=== PATIENT | female | born 1940 | race Caucasian/White ===

== ENCOUNTER → 2016-07-21 | Outpatient (REF) | payer OTHER ==
[2016-07-21 11:40] LABS: ALBUMIN 3.9 GM/DL (3.2-5.2); ALBUMIN/GLOBULIN RATIO 1.22 (1.00-1.93); ALKALINE PHOSPHATASE 53 U/L (45-117); ALT/SGPT 16 U/L (12-78); ANION GAP 9 MEQ/L (8-16); AST/SGOT 11 U/L (15-37); BILIRUBIN,TOTAL 0.6 MG/DL (0.2-1.0); BLOOD UREA NITROGEN 13 MG/DL (7-18); CALCIUM LEVEL 8.9 MG/DL (8.8-10.2); CARBON DIOXIDE LEVEL 28 MEQ/L (21-32); CHLORIDE LEVEL 105 MEQ/L (98-107); CHOLESTEROL LEVEL 155 MG/DL (<200); CREATININE FOR GFR 0.83 MG/DL (0.55-1.02); FREE T4 1.18 NG/DL (0.76-1.46); GLOMERULAR FILTRATION RATE > 60.0 (>39); GLUCOSE, FASTING 121 MG/DL (83-110); POTASSIUM SERUM 4.2 MEQ/L (3.5-5.1); SODIUM LEVEL 142 MEQ/L (136-145); TOTAL PROTEIN 7.1 GM/DL (6.4-8.2); TRIGLYCERIDES LEVEL 261 MG/DL (<150)
== END ==
LOC: M SFHCCLAY 08:01
PROVIDERS: ATTEND Family Medicine
DX: E11.9 Type 2 diabetes mellitus without complications (principal); E03.9 Hypothyroidism, unspecified

== ENCOUNTER → 2016-11-18 | Outpatient (CLI) | payer OTHER ==
--- NOTE | 2016-11-19 03:22 | REP ---
Clinical: Cough. Technique: PA and lateral. Ulysses: 04/09/2016. Findings: Mediastinum and cardiac silhouette are within normal limits and stable. Lung winter demonstrate chronic changes. Trace left basilar atelectasis cannot be excluded. No consolidation, effusion, or pneumothorax. Skeletal structures are intact and normal for age. Impression: Cannot exclude trace left basilar atelectasis. Signed by Lewis Servin MD 11/19/2016 03:14 A
== END ==
LOC: M CLY 15:51
PROVIDERS: ATTEND Family Medicine
DX: R05 Cough (principal); I10 Essential (primary) hypertension; E11.9 Type 2 diabetes mellitus without complications; E03.9 Hypothyroidism, unspecified; Z12.31 Encounter for screening mammogram for malignant neoplasm of breast; R30.0 Dysuria

== ENCOUNTER → 2016-12-22 | Outpatient (REF) | payer OTHER | LOC: M SFHCCLAY 12:11 | PROVIDERS: ATTEND Family Medicine | DX: R35.0 Frequency of micturition (principal) | CPT/HCPCS: 81002; 87086; G0463 ==

== ENCOUNTER → 2017-01-02 | Outpatient (REF) | payer OTHER | LOC: M LAB REF 08:28 | PROVIDERS: ATTEND Physician Assistant | DX: R30.0 Dysuria (principal) ==

== ENCOUNTER → 2017-01-19 | Outpatient (REF) | payer OTHER | LOC: M SFHCCLAY 12:30 | PROVIDERS: ATTEND Family Medicine | DX: E11.9 Type 2 diabetes mellitus without complications (principal) | CPT/HCPCS: 83036; G0463 ==

== ENCOUNTER → 2017-02-14 | Outpatient (REF) | payer OTHER | LOC: M LAB REF 13:40 | PROVIDERS: ATTEND Physician Assistant | DX: R39.15 Urgency of urination (principal) ==

== ENCOUNTER → 2017-07-29 | Outpatient (REF) | payer OTHER ==
[2017-07-29 18:55] LABS: FREE T4 1.16 NG/DL (0.76-1.46)
[2017-07-29 19:25] LABS: ESTIMATED AVERAGE GLUCOSE 123 MG/DL (60-110); HEMOGLOBIN A1c 5.9 %
== END ==
LOC: M SFHCCLAY 13:02
DX: J45.30 Mild persistent asthma, uncomplicated (principal); E03.9 Hypothyroidism, unspecified; E11.9 Type 2 diabetes mellitus without complications
CPT/HCPCS: 84443

== ENCOUNTER → 2017-09-06 | Outpatient (REF) | payer OTHER | LOC: M LAB REF 16:28 | DX: R30.0 Dysuria (principal) | CPT/HCPCS: 87086 ==

== ENCOUNTER → 2017-10-11 | Outpatient (REF) | payer OTHER | LOC: M LAB REF 17:53 | DX: R30.0 Dysuria (principal) | CPT/HCPCS: 87086 ==

== ENCOUNTER → 2017-12-31 | Outpatient (CLI) | payer OTHER | LOC: M RAD 09:01 | DX: M51.26 Other intervertebral disc displacement, lumbar region (principal); M48.061 Spinal stenosis, lumbar region without neurogenic claudication; M12.88 Other specific arthropathies, not elsewhere classified, other specified site; M51.27 Other intervertebral disc displacement, lumbosacral region; M51.06 Intervertebral disc disorders with myelopathy, lumbar region; M71.38 Other bursal cyst, other site; M53.3 Sacrococcygeal disorders, not elsewhere classified ==

== ENCOUNTER → 2017-12-31 | Outpatient (CLI) | payer OTHER | LOC: M RAD 09:06 | DX: M79.671 Pain in right foot (principal); Z87.821 Personal history of retained foreign body fully removed; M51.26 Other intervertebral disc displacement, lumbar region; M48.061 Spinal stenosis, lumbar region without neurogenic claudication; M12.88 Other specific arthropathies, not elsewhere classified, other specified site; M51.27 Other intervertebral disc displacement, lumbosacral region; M51.06 Intervertebral disc disorders with myelopathy, lumbar region; M71.38 Other bursal cyst, other site; M53.3 Sacrococcygeal disorders, not elsewhere classified | CPT/HCPCS: 72148 ==

== ENCOUNTER → 2018-02-21 | Outpatient (REF) | payer OTHER ==
[2018-02-21 20:14] LABS: ANION GAP 8 MEQ/L (8-16); BLOOD UREA NITROGEN 14 MG/DL (7-18); CALCIUM LEVEL 9.3 MG/DL (8.8-10.2); CARBON DIOXIDE LEVEL 29 MEQ/L (21-32); CHLORIDE LEVEL 105 MEQ/L (98-107); CREATININE FOR GFR 0.82 MG/DL (0.55-1.30); GLOMERULAR FILTRATION RATE > 60.0 (>39); LDL CHOLESTEROL 49 MG/DL (<100); POTASSIUM SERUM 4.5 MEQ/L (3.5-5.1); SODIUM LEVEL 142 MEQ/L (136-145); TRIGLYCERIDES LEVEL 274 MG/DL (<150)
[2018-02-22 01:20] LABS: ESTIMATED AVERAGE GLUCOSE 117 MG/DL (60-110); HEMOGLOBIN A1c 5.7 %
[2018-02-22 04:17] LABS: CHOLESTEROL LEVEL 149 MG/DL (<200)
[2018-02-22 04:18] LABS: CHOLESTEROL RISK RATIO 3.311 (<5); HDL CHOLESTEROL 45 MG/DL (>40); NON-HDL-C 104 MG/DL
[2018-02-22 04:25] LABS: GLUCOSE, FASTING 111 MG/DL (70-100)
== END ==
LOC: M SFHCCLAY 09:28
DX: E11.9 Type 2 diabetes mellitus without complications (principal)
CPT/HCPCS: 83036

== ENCOUNTER → 2018-07-27 | Outpatient (REF) | payer MEDICARE ==
[2018-07-27 17:09] LABS: ALBUMIN 3.7 GM/DL (3.2-5.2); ALT/SGPT 15 U/L (12-78); BILIRUBIN,TOTAL 0.4 MG/DL (0.2-1.0); BLOOD UREA NITROGEN 8 MG/DL (7-18); CARBON DIOXIDE LEVEL 30 MEQ/L (21-32); CHLORIDE LEVEL 104 MEQ/L (98-107); CHOLESTEROL LEVEL 122 MG/DL (<200); CHOLESTEROL RISK RATIO 3.388 (<5); CREATININE FOR GFR 0.82 MG/DL (0.55-1.30); FREE T4 1.46 NG/DL (0.76-1.46); GLOMERULAR FILTRATION RATE > 60.0 (>39); GLUCOSE, FASTING 136 MG/DL (70-100); HDL CHOLESTEROL 36 MG/DL (>40); LDL CHOLESTEROL 41 MG/DL (<100); NON-HDL-C 86 MG/DL; POTASSIUM SERUM 4.4 MEQ/L (3.5-5.1); SODIUM LEVEL 140 MEQ/L (136-145); THYROID STIMULATING HORMONE 0.965 uIU/ML (0.358-3.740); TOTAL PROTEIN 7.1 GM/DL (6.4-8.2); TRIGLYCERIDES LEVEL 223 MG/DL (<150)
[2018-07-27 17:48] LABS: MALB URINE SIEMENS 30.7 MG/L; MAU/CREAT RATIO 47.9 MCG/MG (0.0-30.0)
== END ==
LOC: M SFHCCLAY 10:45
PROVIDERS: ATTEND Family Medicine
DX: E11.9 Type 2 diabetes mellitus without complications (principal); E03.9 Hypothyroidism, unspecified; J45.30 Mild persistent asthma, uncomplicated; G25.0 Essential tremor; R30.0 Dysuria; I10 Essential (primary) hypertension
CPT/HCPCS: 80053; 80061; 81002; 82043; 83036; 84439; 84443; 87088; 87186; G0463

== ENCOUNTER → 2018-08-20 | Outpatient (REF) | payer MEDICARE | LOC: M LAB REF 11:33 | PROVIDERS: ATTEND Physician Assistant | DX: R30.0 Dysuria (principal) ==

== ENCOUNTER → 2018-12-02 | Outpatient (REF) | payer MEDICARE ==
[2018-12-02 16:32] LABS: HEMATOCRIT 37.7 % (36.0-47.0); HEMOGLOBIN 12.4 g/dl (12.0-15.5); MEAN CORPUSCULAR HEMOGLOBIN 32.4 pg (27.0-33.0); MEAN CORPUSCULAR HGB CONC 32.9 g/dl (32.0-36.5); MEAN CORPUSCULAR VOLUME 98.4 fl (80.0-96.0); PLATELET COUNT, AUTOMATED 239 10^3/uL (150-450); RED BLOOD COUNT 3.83 10^6/uL (4.00-5.40); WHITE BLOOD COUNT 7.6 10^3/uL (4.0-10.0)
[2018-12-02 16:54] LABS: BLOOD UREA NITROGEN 13 MG/DL (7-18); CALCIUM LEVEL 9.3 MG/DL (8.8-10.2); CARBON DIOXIDE LEVEL 26 MEQ/L (21-32); CHLORIDE LEVEL 108 MEQ/L (98-107); FREE T4 1.53 NG/DL (0.76-1.46); GLOMERULAR FILTRATION RATE > 60.0 (>39); GLUCOSE, FASTING 113 MG/DL (70-100); POTASSIUM SERUM 4.5 MEQ/L (3.5-5.1); SODIUM LEVEL 142 MEQ/L (136-145); THYROID STIMULATING HORMONE 0.287 uIU/ML (0.358-3.740)
[2018-12-02 17:01] LABS: HEMOGLOBIN A1c 6.2 %
== END ==
LOC: M SFHCCLAY 11:44
PROVIDERS: ATTEND Family Medicine
DX: E11.9 Type 2 diabetes mellitus without complications (principal); E03.9 Hypothyroidism, unspecified; J32.4 Chronic pansinusitis

== ENCOUNTER → 2019-01-09 | Outpatient (REF) | payer MEDICARE ==
[2019-01-09 17:17] LABS: FREE T4 1.23 NG/DL (0.76-1.46); THYROID STIMULATING HORMONE 1.01 uIU/ML (0.358-3.740)
== END ==
LOC: M SFHCCLAY 10:58
PROVIDERS: ATTEND Family Medicine
DX: E03.9 Hypothyroidism, unspecified (principal)

== ENCOUNTER → 2019-02-23 | Outpatient (REF) | payer MEDICARE | LOC: M LAB REF 16:42 | PROVIDERS: ATTEND Physician Assistant | DX: N39.0 Urinary tract infection, site not specified (principal) ==

== ENCOUNTER → 2019-06-02 | Outpatient (REF) | payer MEDICARE ==
[2019-06-02 16:25] LABS: HEMATOCRIT 39.4 % (36.0-47.0); MEAN CORPUSCULAR HEMOGLOBIN 32.3 pg (27.0-33.0); MEAN CORPUSCULAR VOLUME 97.8 fl (80.0-96.0); PLATELET COUNT, AUTOMATED 263 10^3/uL (150-450); RED BLOOD COUNT 4.03 10^6/uL (4.00-5.40); WHITE BLOOD COUNT 7.1 10^3/uL (4.0-10.0)
[2019-06-02 16:41] LABS: ALBUMIN 3.8 GM/DL (3.2-5.2); ALT/SGPT 15 U/L (12-78); BILIRUBIN,TOTAL 0.7 MG/DL (0.2-1.0); BLOOD UREA NITROGEN 14 MG/DL (7-18); CALCIUM LEVEL 9.3 MG/DL (8.8-10.2); CARBON DIOXIDE LEVEL 28 MEQ/L (21-32); CHLORIDE LEVEL 105 MEQ/L (98-107); CREATININE FOR GFR 1.04 MG/DL (0.55-1.30); FREE T4 1.23 NG/DL (0.76-1.46); GLOMERULAR FILTRATION RATE 54.8 (>39); GLUCOSE, FASTING 99 MG/DL (70-100); MAGNESIUM LEVEL 1.9 MG/DL (1.8-2.4); POTASSIUM SERUM 4.8 MEQ/L (3.5-5.1); SODIUM LEVEL 141 MEQ/L (136-145); TOTAL PROTEIN 7.5 GM/DL (6.4-8.2)
[2019-06-02 16:47] LABS: ERYTHROCYTE SEDIMENTATION RATE 34 mm/hr (0-30)
[2019-06-06 11:49] LABS: ALBUMIN 4.29 GM/DL (3.29-5.55); ALBUMIN % 57.2 % (55.8-66.1); ALPHA-1-GLOBULIN % 4.8 % (2.9-4.9); ALPHA-1-GLOBULINS 0.36 GM/DL (0.17-0.41); ALPHA-2-GLOBULINS 0.85 GM/DL (0.42-0.99); ALPHA-2-GLOBULINS % 11.3 % (7.1-11.8); BETA-1-GLOBULINS 0.53 GM/DL (0.28-0.60); BETA-2-GLOBULINS 0.45 GM/DL (0.19-0.55); GAMMA GLOBULIN % 13.7 % (11.1-18.8); GAMMA GLOBULINS 1.03 GM/DL (0.65-1.58)
== END ==
LOC: M SFHCCLAY 12:19
PROVIDERS: ATTEND Family Medicine
DX: E03.9 Hypothyroidism, unspecified (principal); I10 Essential (primary) hypertension; M79.10 Myalgia, unspecified site; N30.00 Acute cystitis without hematuria; E11.9 Type 2 diabetes mellitus without complications
CPT/HCPCS: 80053; 81002; 83036; 83735; 84165; 84439; 84443; 85027; 85652; 87086; 87220; G0463

== ENCOUNTER → 2019-07-05 | Outpatient (REF) | payer MEDICARE ==
[2019-07-05 16:52] LABS: APPEARANCE, URINE HAZY (CLEAR); BACTERIA, URINE AUTO 1+ (NEGATIVE); BILIRUBIN, URINE AUTO NEGATIVE (NEGATIVE); BLOOD, URINE BLOOD 1+ (NEGATIVE); COLOR, URINE YELLOW (YELLOW); GLUCOSE, URINE (UA) AUTO NEGATIVE (NEGATIVE); KETONE, URINE AUTO NEGATIVE (NEGATIVE); LEUKOCYTE ESTERASE, URINE AUTO 3+ (NEGATIVE); MUCUS, URINE SMALL (NEGATIVE); NITRITE, URINE AUTO NEGATIVE (NEGATIVE); PROTEIN, URINE AUTO NEGATIVE (NEGATIVE); RBC, URINE AUTO 1 /HPF (0-3); SPECIFIC GRAVITY URINE AUTO 1.006 (1.002-1.035); SQUAMOUS EPITHELIAL CELL UR AU 0 /HPF (0-6); UROBILINOGEN, URINE AUTO 0.2 mg/dL (0.0-2.0); WBC, URINE AUTO 110 /HPF (0-3)
== END ==
LOC: M SFHCCLAY 16:09
PROVIDERS: ATTEND Family Medicine
DX: N39.0 Urinary tract infection, site not specified (principal)

== ENCOUNTER → 2019-07-26 | Outpatient (CLI) | payer MEDICARE ==
--- NOTE | 2019-07-26 13:36 | REP ---
Clinical: Frequent urinary tract infection. Technique: Real time suggs scale and color evaluation using curved array transducer. Findings: The bladder is normal in appearance without wall thickening or mass lesion. Bilateral ureteral jets are identified. Prevoid bladder measures 345 ml and the postvoid bladder was completely emptied. Impression: Normal bladder ultrasound. Electronically Signed by Lewis Servin MD 07/26/2019 01:27 P
--- NOTE | 2019-07-26 13:38 | REP ---
Clinical: Frequent urinary tract infection. Technique: Real time suggs scale ultrasound examination using curved array transducer. Findings: Bilateral kidneys are normal in reniform shape and echogenicity without hydronephrosis, nephrolithiasis, or mass lesion. The right kidney measures 11.5 x 6.0 x 5.6 cm and includes a 5.0 x 3.5 x 4.1 cm upper pole simple cyst. Left kidney measures 12.1 x 5.3 x 5.4 cm without cyst. Incidental cholelithiasis. Impression: 5.0 cm incidental simple right renal cyst. Otherwise normal examination without hydronephrosis or nephrolithiasis. Cholelithiasis. Electronically Signed by Lewis Servin MD 07/26/2019 01:29 P
== END ==
LOC: M RAD 12:06
PROVIDERS: ATTEND Nurse Practitioner Family
DX: N39.0 Urinary tract infection, site not specified (principal)

== ENCOUNTER → 2019-10-04 | Outpatient (REF) | payer MEDICARE ==
[2019-10-04 12:48] LABS: CREATININE, URINE 29.1 MG/DL; MALB URINE SIEMENS 21.1 MG/L; MAU/CREAT RATIO 72.5 MCG/MG (0.0-30.0)
== END ==
LOC: M SFHCCLAY 08:32
PROVIDERS: ATTEND Family Medicine
DX: E11.9 Type 2 diabetes mellitus without complications (principal); E03.9 Hypothyroidism, unspecified; I10 Essential (primary) hypertension

== ENCOUNTER → 2019-10-06 | Outpatient (REF) | payer MEDICARE ==
[2019-10-06 12:23] LABS: ALBUMIN 3.7 GM/DL (3.2-5.2); ALT/SGPT 16 U/L (12-78); BILIRUBIN,TOTAL 0.4 MG/DL (0.2-1.0); BLOOD UREA NITROGEN 11 MG/DL (7-18); CALCIUM LEVEL 9.2 MG/DL (8.8-10.2); CARBON DIOXIDE LEVEL 31 MEQ/L (21-32); CHLORIDE LEVEL 103 MEQ/L (98-107); CHOLESTEROL LEVEL 154 MG/DL (<200); CHOLESTEROL RISK RATIO 3.347 (<5); CREATININE FOR GFR 0.83 MG/DL (0.55-1.30); FREE T4 1.13 NG/DL (0.76-1.46); GLOMERULAR FILTRATION RATE > 60.0 (>39); GLUCOSE, FASTING 105 MG/DL (70-100); HDL CHOLESTEROL 46 MG/DL (>40); LDL CHOLESTEROL 64 MG/DL (<100); NON-HDL-C 108 MG/DL; POTASSIUM SERUM 4.6 MEQ/L (3.5-5.1); SODIUM LEVEL 138 MEQ/L (136-145); TOTAL PROTEIN 7.3 GM/DL (6.4-8.2); TRIGLYCERIDES LEVEL 219 MG/DL (<150)
[2019-10-06 12:30] LABS: HEMOGLOBIN A1c 5.8 %
== END ==
LOC: M LABDRAWC 11:27
PROVIDERS: ATTEND Family Medicine
DX: E11.9 Type 2 diabetes mellitus without complications (principal); E03.9 Hypothyroidism, unspecified; I10 Essential (primary) hypertension

== ENCOUNTER → 2019-10-11 | Outpatient (REF) | payer MEDICARE | LOC: M LABSMT 09:51 | PROVIDERS: ATTEND Nurse Practitioner Family | DX: N39.0 Urinary tract infection, site not specified (principal) ==

== ENCOUNTER → 2019-12-07 | Outpatient (REF) | payer MEDICARE | LOC: M LAB REF 14:05 | PROVIDERS: ATTEND Physician Assistant | DX: N39.0 Urinary tract infection, site not specified (principal) ==

== ENCOUNTER → 2019-12-19 | Outpatient (REF) | payer MEDICARE | LOC: M SFHCCLAY 15:24 | PROVIDERS: ATTEND Family Medicine | DX: N30.00 Acute cystitis without hematuria (principal) | CPT/HCPCS: 81002; 87086; G0463 ==

== ENCOUNTER → 2020-01-11 | Outpatient (REF) | payer MEDICARE ==
[2020-02-17 11:47] LABS: BLOOD UREA NITROGEN 16 MG/DL (7-18); CALCIUM LEVEL 9.3 MG/DL (8.8-10.2); CARBON DIOXIDE LEVEL 29 MEQ/L (21-32); CHLORIDE LEVEL 106 MEQ/L (98-107); CREATININE FOR GFR 0.93 MG/DL (0.55-1.30); GLOMERULAR FILTRATION RATE > 60.0 (>39); GLUCOSE, FASTING 98 MG/DL (70-100); HEMOGLOBIN A1c 5.8 %; POTASSIUM SERUM 5.3 MEQ/L (3.5-5.1); SODIUM LEVEL 140 MEQ/L (136-145)
== END ==
LOC: M SFHCCLAY 19:04
PROVIDERS: ATTEND Family Medicine
DX: E11.9 Type 2 diabetes mellitus without complications (principal); I10 Essential (primary) hypertension
CPT/HCPCS: 36415; 80048; 83036; G0463

== ENCOUNTER → 2020-01-17 | Outpatient (REF) | payer MEDICARE | LOC: M SFHCCLAY 12:59 | PROVIDERS: ATTEND Family Medicine | DX: E87.5 Hyperkalemia (principal); I10 Essential (primary) hypertension; E11.9 Type 2 diabetes mellitus without complications ==

== ENCOUNTER → 2020-01-26 | Outpatient (REF) | payer MEDICARE | LOC: M WUC 15:35 | PROVIDERS: ATTEND Nurse Practitioner Family | DX: R30.0 Dysuria (principal) ==

== ENCOUNTER → 2020-02-06 | Outpatient (REF) | payer MEDICARE | LOC: M WUC 13:36 | PROVIDERS: ATTEND Nurse Practitioner Family | DX: B37.3 Candidiasis of vulva and vagina (principal) ==

== ENCOUNTER → 2020-03-04 | Outpatient (REF) | payer MEDICARE | LOC: M LAB REF 16:10 | PROVIDERS: ATTEND Physician Assistant | DX: N39.0 Urinary tract infection, site not specified (principal) ==

== ENCOUNTER → 2020-03-19 | Outpatient (REF) | payer MEDICARE ==
[2020-03-19 14:44] LABS: APPEARANCE, URINE CLEAR (CLEAR); BACTERIA, URINE AUTO 1+ (NEGATIVE); BILIRUBIN, URINE AUTO NEGATIVE (NEGATIVE); BLOOD, URINE BLOOD NEGATIVE (NEGATIVE); COLOR, URINE STRAW (YELLOW); GLUCOSE, URINE (UA) AUTO NEGATIVE (NEGATIVE); KETONE, URINE AUTO NEGATIVE (NEGATIVE); LEUKOCYTE ESTERASE, URINE AUTO TRACE (NEGATIVE); NITRITE, URINE AUTO NEGATIVE (NEGATIVE); PROTEIN, URINE AUTO NEGATIVE (NEGATIVE); RBC, URINE AUTO 0 /HPF (0-3); SPECIFIC GRAVITY URINE AUTO 1.003 (1.002-1.035); SQUAMOUS EPITHELIAL CELL UR AU 0 /HPF (0-6); UROBILINOGEN, URINE AUTO 0.2 mg/dL (0.0-2.0); WBC, URINE AUTO 0 /HPF (0-3)
== END ==
LOC: M SMT 12:44
PROVIDERS: ATTEND Nurse Practitioner Family
DX: N39.0 Urinary tract infection, site not specified (principal)
CPT/HCPCS: 81001; 87086; G0463

== ENCOUNTER → 2020-04-19 | Outpatient (REF) | payer MEDICARE | LOC: M WUC 15:51 | PROVIDERS: ATTEND Physician Assistant | DX: R30.0 Dysuria (principal) ==

== ENCOUNTER → 2020-04-22 | Outpatient (REF) | payer MEDICARE ==
[2020-04-22 18:44] LABS: APPEARANCE, URINE CLEAR (CLEAR); BACTERIA, URINE AUTO NEGATIVE (NEGATIVE); BILIRUBIN, URINE AUTO NEGATIVE (NEGATIVE); BLOOD, URINE BLOOD NEGATIVE (NEGATIVE); COLOR, URINE YELLOW (YELLOW); GLUCOSE, URINE (UA) AUTO NEGATIVE (NEGATIVE); KETONE, URINE AUTO NEGATIVE (NEGATIVE); LEUKOCYTE ESTERASE, URINE AUTO TRACE (NEGATIVE); NITRITE, URINE AUTO NEGATIVE (NEGATIVE); PROTEIN, URINE AUTO NEGATIVE (NEGATIVE); RBC, URINE AUTO 0 /HPF (0-3); SPECIFIC GRAVITY URINE AUTO 1.005 (1.002-1.035); SQUAMOUS EPITHELIAL CELL UR AU 1 /HPF (0-6); UROBILINOGEN, URINE AUTO 0.2 mg/dL (0.0-2.0); WBC, URINE AUTO 0 /HPF (0-3)
== END ==
LOC: M SMT 16:56
PROVIDERS: ATTEND Nurse Practitioner Family
DX: R30.0 Dysuria (principal)

== ENCOUNTER → 2020-06-10 | Outpatient (REF) | payer MEDICARE ==
[2020-06-10 16:33] LABS: BASO # 0.1 10^3/uL (0.0-0.2); BASO % 0.7 % (0.0-1.0); EOS # 0.3 10^3/uL (0.0-0.5); EOS % 3.9 % (0.0-3.0); HEMATOCRIT 39.2 % (36.0-47.0); HEMOGLOBIN 12.6 g/dl (12.0-15.5); LYMPH # 1.5 10^3/uL (1.5-5.0); LYMPH % 17.8 % (24.0-44.0); MEAN CORPUSCULAR HEMOGLOBIN 32.1 pg (27.0-33.0); MEAN CORPUSCULAR HGB CONC 32.1 g/dl (32.0-36.5); MEAN CORPUSCULAR VOLUME 99.7 fl (80.0-96.0); MONO # 0.7 10^3/uL (0.0-0.8); MONO % 8.1 % (0.0-5.0); NEUTROPHILS # 5.9 10^3/uL (1.5-8.5); NEUTROPHILS % 69.1 % (36.0-66.0); PLATELET COUNT, AUTOMATED 214 10^3/uL (150-450); RED BLOOD COUNT 3.93 10^6/uL (4.00-5.40); WHITE BLOOD COUNT 8.6 10^3/uL (4.0-10.0)
[2020-06-10 17:16] LABS: ERYTHROCYTE SEDIMENTATION RATE 38 mm/hr (0-30)
[2020-06-12 15:08] LABS: ANTINUCLEAR ANTIBODIES DIRECT Negative (Negative)
== END ==
LOC: M LABDRAWC 15:43
PROVIDERS: ATTEND Physician Assistant Medical
DX: R51.9 Headache, unspecified (principal); H54.7 Unspecified visual loss

== ENCOUNTER → 2020-08-16 | Outpatient (REF) | payer MEDICARE ==
[2020-08-16 16:44] LABS: HEMOGLOBIN A1c 6.1 %
[2020-08-16 17:00] LABS: ALBUMIN 3.4 GM/DL (3.2-5.2); ALT/SGPT 14 U/L (12-78); BILIRUBIN,TOTAL 0.4 MG/DL (0.2-1.0); BLOOD UREA NITROGEN 16 MG/DL (7-18); CALCIUM LEVEL 8.8 MG/DL (8.8-10.2); CARBON DIOXIDE LEVEL 28 MEQ/L (21-32); CHLORIDE LEVEL 103 MEQ/L (98-107); CREATININE FOR GFR 0.89 MG/DL (0.55-1.30); FREE T4 1.08 NG/DL (0.76-1.46); GLOMERULAR FILTRATION RATE > 60.0 (>39); GLUCOSE, FASTING 94 MG/DL (70-100); POTASSIUM SERUM 4.4 MEQ/L (3.5-5.1); SODIUM LEVEL 136 MEQ/L (136-145); TOTAL PROTEIN 6.9 GM/DL (6.4-8.2)
== END ==
LOC: M SFHCCLAY 13:34
PROVIDERS: ATTEND Family Medicine
DX: R30.0 Dysuria (principal); E11.9 Type 2 diabetes mellitus without complications; I10 Essential (primary) hypertension; E03.9 Hypothyroidism, unspecified
CPT/HCPCS: 80053; 81002; 83036; 84439; 84443; 87088; 87186; G0463

== ENCOUNTER → 2020-10-07 | Outpatient (REF) | payer MEDICARE | LOC: M LAB REF 19:38 | PROVIDERS: ATTEND Physician Assistant | DX: N39.0 Urinary tract infection, site not specified (principal) ==

== ENCOUNTER → 2020-11-06 | Outpatient (REF) | payer MEDICARE | LOC: M WUC 19:52 | PROVIDERS: ATTEND Physician Assistant | DX: N39.0 Urinary tract infection, site not specified (principal) ==

== ENCOUNTER → 2020-12-02 | Outpatient (REF) | payer MEDICARE | LOC: M SFHCCLAY 13:39 | PROVIDERS: ATTEND Physician Assistant | DX: R30.0 Dysuria (principal) | CPT/HCPCS: 81002; 87088; 87186; G0463 ==

== ENCOUNTER → 2020-12-04 | Outpatient (CLI) | payer MEDICARE ==
--- NOTE | 2020-12-04 15:55 | REP ---
INDICATION: SOB; COUGH. COMPARISON: 11/18/2016 TECHNIQUE: PA and lateral FINDINGS: There is cardiomegaly status quo. Lung winter are unchanged. 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 No new abnormal parenchymal opacities or pleural effusions have developed. Lung winter are otherwise clear. The osseous structures stable. IMPRESSION: Cardiomegaly without evidence of acute cardiopulmonary disease. <Electronically signed by Matty Addison > 12/04/20 [id number]
== END ==
LOC: M CLY 15:40
PROVIDERS: ATTEND Family Medicine
DX: I51.7 Cardiomegaly (principal); R06.02 Shortness of breath; R05 Cough
CPT/HCPCS: 71046; G0463

== ENCOUNTER → 2020-12-17 | Outpatient (REF) | payer MEDICARE | LOC: M WUC 16:12 | PROVIDERS: ATTEND Physician Assistant | DX: R30.0 Dysuria (principal) ==

== ENCOUNTER → 2021-01-17 | Outpatient (CLI) | payer MEDICARE ==
--- NOTE | 2021-01-17 12:43 | REP ---
INDICATION: RECURRENT UTI'S. COMPARISON: Bladder ultrasound: 07/26/2019. TECHNIQUE: Multiple ultrasound images were obtained through the urinary bladder. FINDINGS: The prevoid bladder measures 9.1 x 8.2 x 5.0 cm had a volume of 244 cc. There is no postvoid bladder residual. The bladder wall thickness is normal. The ureteral jets are not demonstrated. IMPRESSION: The bladder appears normal and empties adequately. <Electronically signed by Manas Kumar > 01/17/21 [id number]
--- NOTE | 2021-01-17 12:52 | REP ---
INDICATION: RECURRENT UTI'S. COMPARISON: Renal ultrasound 07/26/2019. TECHNIQUE: Multiplanar 2D ultrasound images were obtained through both kidneys. FINDINGS: The right kidney measures 9.5 x 5.2 x 4.7 cm. There is an interpolar cortical cyst measuring 6.5 x 5.6 x 4.3 cm. The renal parenchymal echogenicity is normal. There is no evidence of hydronephrosis. The left kidney measures 10.2 x 5.4 x 4.2 cm. The renal parenchymal echogenicity is normal. There is no evidence of hydronephrosis. IMPRESSION: 1. Benign cyst, right kidney. 2. The left kidney is normal. <Electronically signed by Manas Kumar > 01/17/21 [id number]
== END ==
LOC: M RAD 11:34
PROVIDERS: ATTEND Nurse Practitioner Family
DX: Z87.440 Personal history of urinary (tract) infections (principal)

== ENCOUNTER → 2021-01-27 | Outpatient (REF) | payer MEDICARE ==
[2021-01-29 18:09] LABS: ANTINUCLEAR ANTIBODIES DIRECT Negative (Negative); Lyme Disease IgG/IgM Antibodie <0.91 ISR (0.00-0.90); Lyme Disease IgM Ab Quantitati <0.80 index (0.00-0.79)
== END ==
LOC: M LABDRAWC 15:36
PROVIDERS: ATTEND Physician Assistant Medical
DX: R51.9 Headache, unspecified (principal); M25.50 Pain in unspecified joint

== ENCOUNTER → 2021-02-11 | Outpatient (CLI) | payer MEDICARE ==
--- NOTE | 2021-02-11 15:53 | REP ---
INDICATION: RO5 COUGH COMPARISON: 12/04/2020. TECHNIQUE: PA/Lateral FINDINGS: Lungs: Clear, no infiltrate. There is mild bibasilar fibrotic change which is stable. Heart: There is mild cardiomegaly. Mediastinum: Mediastinal silhouette unremarkable and unchanged. Pleural angles: Unremarkable.. Bones and soft tissues: There are degenerative changes of the spine IMPRESSION: No acute pulmonary disease. Stable exam. <Electronically signed by Deon Kirkpatrick > 02/11/21 [id number]
== END ==
LOC: M CLY 15:33
PROVIDERS: ATTEND Physician Assistant
DX: R05 Cough (principal); R30.0 Dysuria
CPT/HCPCS: 71046; 81002; 87088; 87186; 87426; G0463; U0003

== ENCOUNTER → 2021-02-11 | Outpatient (REF) | payer MEDICARE | LOC: M SFHCCLAY 15:07 | PROVIDERS: ATTEND Physician Assistant | DX: R30.0 Dysuria (principal); R05 Cough ==

== ENCOUNTER → 2021-03-12 | Outpatient (REF) | payer MEDICARE | LOC: M LABDRAWC 15:46 | PROVIDERS: ATTEND Physician Assistant Medical | DX: M25.50 Pain in unspecified joint (principal); R51.9 Headache, unspecified; R70.0 Elevated erythrocyte sedimentation rate ==

== ENCOUNTER → 2021-04-28 | Outpatient (CLI) | payer MEDICARE ==
--- NOTE | 2021-04-28 11:09 | REP ---
INDICATION: RT KNEE PAIN COMPARISON: 05/21/2015 TECHNIQUE: AP, lateral, bilateral oblique and sunrise views. FINDINGS: Patient is again noted to be status post arthroplasty with stable satisfactory appearance. There is no evidence for acute fracture or dislocation. No obvious effusion. No subcutaneous emphysema or foreign body. No acute periosteal reaction. IMPRESSION: Stable examination. No obvious acute process appreciated. <Electronically signed by Lewis Servin > 04/28/21 [id number]
== END ==
LOC: M CLY 10:31
PROVIDERS: ATTEND Physician Assistant Medical
DX: M25.561 Pain in right knee (principal)

== ENCOUNTER → 2021-06-03 | Outpatient (REF) | payer MEDICARE | LOC: M SMT 16:53 | PROVIDERS: ATTEND Nurse Practitioner Women's Health | DX: R30.0 Dysuria (principal) | CPT/HCPCS: 87086; G0463 ==

== ENCOUNTER → 2021-06-19 | Outpatient (REF) | payer MEDICARE ==
[2021-06-20 11:57] LABS: HEMATOCRIT 38.1 % (36.0-47.0); HEMOGLOBIN 12.6 g/dl (12.0-15.5); MEAN CORPUSCULAR HGB CONC 33.1 g/dl (32.0-36.5); MEAN CORPUSCULAR VOLUME 96.7 fl (80.0-96.0); PLATELET COUNT, AUTOMATED 397 10^3/uL (150-450); RED BLOOD COUNT 3.94 10^6/uL (4.00-5.40); WHITE BLOOD COUNT 12.1 10^3/uL (4.0-10.0)
[2021-06-20 12:17] LABS: HEMOGLOBIN A1c 6.2 %
[2021-06-20 12:43] LABS: ALBUMIN 3.6 GM/DL (3.2-5.2); BILIRUBIN,TOTAL 0.5 MG/DL (0.2-1.0); CALCIUM LEVEL 9.8 MG/DL (8.8-10.2); CREATININE FOR GFR 1.03 MG/DL (0.55-1.30); FREE T4 1.3 NG/DL (0.76-1.46); GLOMERULAR FILTRATION RATE 55.2 (>39); POTASSIUM SERUM 5.5 MEQ/L (3.5-5.1); THYROID STIMULATING HORMONE 1.02 uIU/ML (0.358-3.740); TOTAL PROTEIN 7.5 GM/DL (6.4-8.2)
== END ==
LOC: M SFHCCLAY 15:14
PROVIDERS: ATTEND Family Medicine
DX: J44.1 Chronic obstructive pulmonary disease with (acute) exacerbation (principal); E11.9 Type 2 diabetes mellitus without complications; E03.9 Hypothyroidism, unspecified
CPT/HCPCS: 80053; 83036; 84439; 84443; 85027; G0463

== ENCOUNTER → 2021-07-04 | Outpatient (REF) | payer MEDICARE | LOC: M SFHCCLAY 10:03 | PROVIDERS: ATTEND Family Medicine | DX: E87.5 Hyperkalemia (principal) ==

== ENCOUNTER → 2021-10-08 | Outpatient (REF) | payer MEDICARE | LOC: M SFHCCLAY 11:34 | PROVIDERS: ATTEND Nurse Practitioner Family | DX: N39.0 Urinary tract infection, site not specified (principal) ==

== ENCOUNTER → 2021-11-27 | Outpatient (REF) | payer MEDICARE | LOC: M SFHCCLAY 13:36 | PROVIDERS: ATTEND Physician Assistant | DX: R30.0 Dysuria (principal) ==

== ENCOUNTER → 2022-02-06 | Outpatient (CLI) | payer MEDICARE | LOC: M CARPUL 09:13 | PROVIDERS: ATTEND Family Medicine | DX: I35.8 Other nonrheumatic aortic valve disorders (principal) ==

== ENCOUNTER → 2022-04-06 | Outpatient (REF) | payer MEDICARE | LOC: M LAB REF 16:21 | PROVIDERS: ATTEND Physician Assistant | DX: N39.0 Urinary tract infection, site not specified (principal) ==

== ENCOUNTER → 2022-05-11 | Outpatient (CLI) | payer MEDICARE | LOC: M CLY 10:26 | PROVIDERS: ATTEND Family Medicine | DX: J18.9 Pneumonia, unspecified organism (principal) ==

== ENCOUNTER → 2022-05-11 | Outpatient (REF) | payer MEDICARE ==
[2022-05-11 17:29] LABS: BASO # 0.1 10^3/uL (0.0-0.2); BASO % 0.6 % (0.0-1.0); EOS # 0.3 10^3/uL (0.0-0.5); EOS % 4.2 % (0.0-3.0); HEMATOCRIT 37.7 % (36.0-47.0); HEMOGLOBIN 11.6 g/dl (12.0-15.5); LYMPH # 1.5 10^3/uL (1.5-5.0); LYMPH % 19.1 % (24.0-44.0); MEAN CORPUSCULAR HEMOGLOBIN 30.1 pg (27.0-33.0); MEAN CORPUSCULAR HGB CONC 30.8 g/dl (32.0-36.5); MEAN CORPUSCULAR VOLUME 97.9 fl (80.0-96.0); MONO # 0.8 10^3/uL (0.0-0.8); MONO % 10.1 % (2.0-8.0); NEUTROPHILS # 5.3 10^3/uL (1.5-8.5); NEUTROPHILS % 65.6 % (36.0-66.0); PLATELET COUNT, AUTOMATED 319 10^3/uL (150-450); RED BLOOD COUNT 3.85 10^6/uL (4.00-5.40)
[2022-05-11 18:33] LABS: CHLORIDE LEVEL 102 MMOL/L (98-107); POTASSIUM SERUM 4.8 MMOL/L (3.5-5.1); SODIUM LEVEL 141 MMOL/L (136-145)
[2022-05-11 18:34] LABS: ALBUMIN 3.5 G/DL (3.2-5.2); CARBON DIOXIDE LEVEL 29 MMOL/L (20-31)
[2022-05-11 18:38] LABS: CALCIUM LEVEL 9.1 MG/DL (8.3-10.6)
[2022-05-11 18:39] LABS: BLOOD UREA NITROGEN 9 MG/DL (9-23); GLUCOSE, FASTING 111 MG/DL (74-106)
[2022-05-11 18:40] LABS: ALKALINE PHOSPHATASE 49 U/L (46-116); CREATININE FOR GFR 0.85 MG/DL (0.55-1.30); GLOMERULAR FILTRATION RATE > 60.0 (>39)
[2022-05-11 18:41] LABS: ALT/SGPT 11 U/L (7.0-40); AST/SGOT 11 U/L (<34); BILIRUBIN,TOTAL 0.4 MG/DL (0.3-1.2); TOTAL PROTEIN 7.2 G/DL (5.7-8.2)
== END ==
LOC: M SFHCCLAY 10:23
PROVIDERS: ATTEND Family Medicine
DX: J18.9 Pneumonia, unspecified organism (principal); E11.9 Type 2 diabetes mellitus without complications; E03.9 Hypothyroidism, unspecified

== ENCOUNTER → 2022-06-02 | Outpatient (CLI) | payer MEDICARE | LOC: M CLY 13:15 | PROVIDERS: ATTEND Family Medicine | DX: J18.9 Pneumonia, unspecified organism (principal) ==

== ENCOUNTER → 2022-11-30 | Outpatient (CLI) | payer MEDICARE | LOC: M CLY 11:04 | PROVIDERS: ATTEND Physician Assistant Medical | DX: M85.88 Other specified disorders of bone density and structure, other site (principal); M47.816 Spondylosis without myelopathy or radiculopathy, lumbar region; M54.41 Lumbago with sciatica, right side ==

== ENCOUNTER → 2022-11-30 | Outpatient (REF) | payer MEDICARE ==
[2022-11-30 18:21] LABS: ALBUMIN 3.8 G/DL (3.2-5.2); ALKALINE PHOSPHATASE 48 U/L (46-116); ALT/SGPT 13 U/L (7.0-40); AST/SGOT < 8 U/L (<34); BILIRUBIN,TOTAL 0.4 MG/DL (0.3-1.2); BLOOD UREA NITROGEN 15 MG/DL (9-23); CARBON DIOXIDE LEVEL 28 MMOL/L (20-31); CHLORIDE LEVEL 103 MMOL/L (98-107); CHOLESTEROL LEVEL 119 MG/DL (<200); CHOLESTEROL RISK RATIO 2.98 (<5); CREATININE FOR GFR 0.97 MG/DL (0.55-1.30); GLOMERULAR FILTRATION RATE 58.8 (>32); GLUCOSE, FASTING 102 MG/DL (74-106); HDL CHOLESTEROL 39.9 MG/DL (>40); LDL CHOLESTEROL 32.1 MG/DL (<100); NON-HDL-C 79.1 MG/DL; POTASSIUM SERUM 5.2 MMOL/L (3.5-5.1); SODIUM LEVEL 137 MMOL/L (136-145); TOTAL PROTEIN 6.9 G/DL (5.7-8.2); TRIGLYCERIDES LEVEL 235 MG/DL (<150)
[2022-11-30 18:25] LABS: VITAMIN B12 LEVEL 278 PG/ML (211-911)
[2022-11-30 18:26] LABS: FREE T4 1.15 NG/DL (0.89-1.76); THYROID STIMULATING HORMONE 2.373 uIU/ML (0.55-4.78)
[2022-11-30 18:42] LABS: BASO # 0.1 10^3/uL (0.0-0.2); BASO % 0.6 % (0.0-1.0); EOS # 0.3 10^3/uL (0.0-0.5); EOS % 3.2 % (0.0-3.0); HEMATOCRIT 38.7 % (36.0-47.0); HEMOGLOBIN 12.2 g/dl (12.0-15.5); LYMPH # 1.3 10^3/uL (1.5-5.0); LYMPH % 12.7 % (24.0-44.0); MEAN CORPUSCULAR HEMOGLOBIN 30.3 pg (27.0-33.0); MEAN CORPUSCULAR HGB CONC 31.5 g/dl (32.0-36.5); MONO # 0.8 10^3/uL (0.0-0.8); MONO % 8.2 % (2.0-8.0); NEUTROPHILS # 7.5 10^3/uL (1.5-8.5); NEUTROPHILS % 74.9 % (36.0-66.0); PLATELET COUNT, AUTOMATED 254 10^3/uL (150-450); RED BLOOD COUNT 4.03 10^6/uL (4.00-5.40); WHITE BLOOD COUNT 10.1 10^3/uL (4.0-10.0)
[2022-11-30 18:48] LABS: CREATININE, URINE 41.5 MG/DL; MALB URINE SIEMENS < 3.0 MG/L; MAU/CREAT RATIO 7.2 MCG/MG (0.0-30.0)
[2022-11-30 19:27] LABS: HEMOGLOBIN A1c 5.8 % (4.0-6.0)
== END ==
LOC: M SFHCCLAY 11:01
PROVIDERS: ATTEND Physician Assistant Medical
DX: R20.2 Paresthesia of skin (principal); E11.9 Type 2 diabetes mellitus without complications; E03.9 Hypothyroidism, unspecified; I10 Essential (primary) hypertension

== ENCOUNTER → 2023-03-18 | Outpatient (REF) | payer MEDICARE | LOC: M SFHCCLAY 11:22 | PROVIDERS: ATTEND Family Medicine | DX: N30.00 Acute cystitis without hematuria (principal) ==

== ENCOUNTER → 2023-05-31 | Outpatient (REF) | payer MEDICARE ==
[2023-05-31 19:30] LABS: HEMOGLOBIN A1c 5.7 % (4.0-6.0)
[2023-05-31 19:33] LABS: BLOOD UREA NITROGEN 17 MG/DL (9-23); CALCIUM LEVEL 9.2 MG/DL (8.3-10.6); CARBON DIOXIDE LEVEL 27 MMOL/L (20-31); CHLORIDE LEVEL 104 MMOL/L (98-107); CREATININE FOR GFR 0.79 MG/DL (0.55-1.30); GLOMERULAR FILTRATION RATE > 60.0 (>32); GLUCOSE, FASTING 123 MG/DL (74-106); SODIUM LEVEL 138 MMOL/L (136-145)
== END ==
LOC: M SFHCCLAY 10:32
PROVIDERS: ATTEND Family Medicine
DX: N30.00 Acute cystitis without hematuria (principal); E11.9 Type 2 diabetes mellitus without complications; J45.30 Mild persistent asthma, uncomplicated; I10 Essential (primary) hypertension

== ENCOUNTER → 2023-09-15 | Outpatient (CLI) | payer MEDICARE | LOC: M CLY 13:45 | PROVIDERS: ATTEND Physician Assistant | DX: R05.8 Other specified cough (principal); Z79.899 Other long term (current) drug therapy; J18.9 Pneumonia, unspecified organism; N30.01 Acute cystitis with hematuria; Z79.82 Long term (current) use of aspirin; Z79.84 Long term (current) use of oral hypoglycemic drugs; Z88.0 Allergy status to penicillin; Z88.1 Allergy status to other antibiotic agents; Z88.8 Allergy status to other drugs, medicaments and biological substances ==

== ENCOUNTER → 2023-09-15 | Outpatient (CLI) | payer MEDICARE | LOC: M CLY 15:18 | PROVIDERS: ATTEND Physician Assistant | DX: R05.8 Other specified cough (principal) ==

== ENCOUNTER → 2023-09-29 | Outpatient (CLI) | payer MEDICARE | LOC: M CLY 13:36 | PROVIDERS: ATTEND Physician Assistant | DX: J18.9 Pneumonia, unspecified organism (principal) ==

== ENCOUNTER → 2023-09-29 | Outpatient (REF) | payer MEDICARE | LOC: M SFHCCLAY 13:28 | PROVIDERS: ATTEND Physician Assistant | DX: R30.0 Dysuria (principal) ==

== ENCOUNTER → 2023-10-20 | Outpatient (CLI) | payer MEDICARE | LOC: M CLY 14:22 | PROVIDERS: ATTEND Physician Assistant | DX: J98.11 Atelectasis (principal) ==

== ENCOUNTER → 2023-10-20 | Outpatient (REF) | payer MEDICARE | LOC: M SFHCCLAY 15:03 | PROVIDERS: ATTEND Physician Assistant | DX: R50.9 Fever, unspecified (principal) ==

== ENCOUNTER → 2023-11-16 | Outpatient (REF) | payer MEDICARE ==
[2023-11-16 17:42] LABS: BILIRUBIN,TOTAL 0.4 MG/DL (0.3-1.2); CALCIUM LEVEL 9.3 MG/DL (8.3-10.6); CHOLESTEROL RISK RATIO 3.18 (<5); CREATININE FOR GFR 0.97 MG/DL (0.55-1.30); GLOMERULAR FILTRATION RATE 58.7 (>32); HDL CHOLESTEROL 37.1 MG/DL (>40); LDL CHOLESTEROL 43.9 MG/DL (<100); NON-HDL-C 80.9 MG/DL; POTASSIUM SERUM 5.1 MMOL/L (3.5-5.1); TOTAL PROTEIN 6.3 G/DL (5.7-8.2)
[2023-11-16 17:43] LABS: THYROID STIMULATING HORMONE 5.558 uIU/ML (0.55-4.78)
[2023-11-16 17:48] LABS: HEMOGLOBIN A1c 6.6 % (4.0-6.0)
[2023-11-16 18:01] LABS: CREATININE, URINE 120.6 MG/DL
[2023-11-16 18:02] LABS: MAU/CREAT RATIO 2.4 MCG/MG (0.0-30.0)
== END ==
LOC: M SFHCCLAY 09:18
PROVIDERS: ATTEND Physician Assistant
DX: E11.9 Type 2 diabetes mellitus without complications (principal); I10 Essential (primary) hypertension; E03.9 Hypothyroidism, unspecified

== ENCOUNTER → 2024-01-05 | Outpatient (REF) | payer MEDICARE | LOC: M SFHCCLAY 13:48 | PROVIDERS: ATTEND Physician Assistant | DX: E03.9 Hypothyroidism, unspecified (principal) ==

== ENCOUNTER → 2024-01-18 | Outpatient (REF) | payer MEDICARE | LOC: M SFHCCLAY 15:54 | PROVIDERS: ATTEND Physician Assistant | DX: J44.89 Other specified chronic obstructive pulmonary disease (principal) ==

== ENCOUNTER → 2024-03-15 | Outpatient (CLI) | payer MEDICARE | LOC: M CLY 13:53 | PROVIDERS: ATTEND Physician Assistant | DX: M54.41 Lumbago with sciatica, right side (principal); M54.42 Lumbago with sciatica, left side ==

== ENCOUNTER → 2024-04-06 | Outpatient (CLI) | payer MEDICARE | LOC: M CLY 14:17 | PROVIDERS: ATTEND Physician Assistant | DX: M25.512 Pain in left shoulder (principal) ==

== ENCOUNTER → 2024-04-06 | Outpatient (REF) | payer MEDICARE ==
[2024-04-06 18:07] LABS: HEMOGLOBIN A1c 5.9 % (4.0-6.0)
[2024-04-06 18:26] LABS: ALBUMIN 3.6 G/DL (3.2-5.2); ALKALINE PHOSPHATASE 50 U/L (46-116); ALT/SGPT 13 U/L (7.0-40); AST/SGOT < 8 U/L (<34); BILIRUBIN,TOTAL 0.3 MG/DL (0.3-1.2); BLOOD UREA NITROGEN 17 MG/DL (9-23); CALCIUM LEVEL 9.8 MG/DL (8.3-10.6); CARBON DIOXIDE LEVEL 30 MMOL/L (20-31); CHLORIDE LEVEL 106 MMOL/L (98-107); GLOMERULAR FILTRATION RATE > 60.0 (>32); GLUCOSE, FASTING 98 MG/DL (74-106); POTASSIUM SERUM 4.9 MMOL/L (3.5-5.1); SODIUM LEVEL 142 MMOL/L (136-145)
[2024-04-06 18:28] LABS: FREE T4 1.56 NG/DL (0.89-1.76)
== END ==
LOC: M SFHCCLAY 14:02
PROVIDERS: ATTEND Physician Assistant
DX: E11.51 Type 2 diabetes mellitus with diabetic peripheral angiopathy without gangrene (principal); J44.89 Other specified chronic obstructive pulmonary disease; I12.9 Hypertensive chronic kidney disease with stage 1 through stage 4 chronic kidney disease, or unspecified chronic kidney disease; K21.9 Gastro-esophageal reflux disease without esophagitis; E03.9 Hypothyroidism, unspecified; N39.3 Stress incontinence (female) (male); R00.0 Tachycardia, unspecified; I35.0 Nonrheumatic aortic (valve) stenosis; G45.9 Transient cerebral ischemic attack, unspecified; G24.3 Spasmodic torticollis; R13.10 Dysphagia, unspecified

== ENCOUNTER → 2024-09-27 | Outpatient (REF) | payer MEDICARE ==
[2024-09-27 17:41] LABS: ALBUMIN 3.6 G/DL (3.2-5.2); BILIRUBIN,TOTAL 0.4 MG/DL (0.3-1.2); CALCIUM LEVEL 9.3 MG/DL (8.3-10.6); CHOLESTEROL RISK RATIO 2.64 (<5); CREATININE FOR GFR 0.86 MG/DL (0.55-1.30); GLOMERULAR FILTRATION RATE 67.4 (>32); HDL CHOLESTEROL 53.6 MG/DL (>40); LDL CHOLESTEROL 46.6 MG/DL (<100); NON-HDL-C 88.4 MG/DL; POTASSIUM SERUM 4.9 MMOL/L (3.5-5.1); TOTAL PROTEIN 7.4 G/DL (5.7-8.2)
[2024-09-27 17:45] LABS: FREE T4 1.51 NG/DL (0.89-1.76); THYROID STIMULATING HORMONE 0.999 uIU/ML (0.55-4.78)
[2024-09-27 18:12] LABS: HEMOGLOBIN A1c 5.8 % (4.0-6.0)
== END ==
LOC: M SFHCCLAY 09:48
PROVIDERS: ATTEND Physician Assistant
DX: M25.512 Pain in left shoulder (principal); E11.51 Type 2 diabetes mellitus with diabetic peripheral angiopathy without gangrene; J44.89 Other specified chronic obstructive pulmonary disease; I12.9 Hypertensive chronic kidney disease with stage 1 through stage 4 chronic kidney disease, or unspecified chronic kidney disease; K21.9 Gastro-esophageal reflux disease without esophagitis; E03.9 Hypothyroidism, unspecified; N39.3 Stress incontinence (female) (male); R00.0 Tachycardia, unspecified; I35.0 Nonrheumatic aortic (valve) stenosis; G45.9 Transient cerebral ischemic attack, unspecified; G24.3 Spasmodic torticollis; N18.31 Chronic kidney disease, stage 3a; R13.10 Dysphagia, unspecified

== ENCOUNTER → 2024-10-26 | Outpatient (CLI) | payer MEDICARE | LOC: M CLY 13:59 | PROVIDERS: ATTEND Physician Assistant | DX: M79.89 Other specified soft tissue disorders (principal) ==

== ENCOUNTER → 2025-01-16 | Outpatient (REF) | payer MEDICARE | LOC: M SFHCCLAY 14:34 | PROVIDERS: ATTEND Physician Assistant | DX: R30.0 Dysuria (principal) ==

== ENCOUNTER → 2025-02-28 | Outpatient (CLI) | payer MEDICARE | LOC: M SOG 07:24 | PROVIDERS: ATTEND Orthopaedic Surgery | DX: M25.531 Pain in right wrist (principal) ==

== ENCOUNTER → 2025-04-02 | Outpatient (REF) | payer MEDICARE ==
[2025-04-02 18:00] LABS: ALT/SGPT 15.0 U/L (7.0-40); AST/SGOT 12.0 U/L (<34); CALCIUM LEVEL 9.2 MG/DL (8.3-10.6); CARBON DIOXIDE LEVEL 27.0 MMOL/L (20-31); CHLORIDE LEVEL 104.0 MMOL/L (98-107); CHOLESTEROL LEVEL 122.0 MG/DL (<200); CHOLESTEROL RISK RATIO 2.44 (<5); CREATININE FOR GFR 0.88 MG/DL (0.55-1.30); GLOMERULAR FILTRATION RATE 65.6 (>32); LDL CHOLESTEROL 37.2 MG/DL (<100); NON-HDL-C 72.2 MG/DL; POTASSIUM SERUM 4.9 MMOL/L (3.5-5.1); SODIUM LEVEL 142.0 MMOL/L (136-145); TRIGLYCERIDES LEVEL 175.0 MG/DL (<150)
[2025-04-02 18:01] LABS: FREE T4 1.36 NG/DL (0.89-1.76)
[2025-04-02 18:37] LABS: ESTIMATED AVERAGE GLUCOSE 126.0 MG/DL (60-110)
== END ==
LOC: M SFHCCLAY 09:25
PROVIDERS: ATTEND Physician Assistant
DX: E11.22 Type 2 diabetes mellitus with diabetic chronic kidney disease (principal); J44.89 Other specified chronic obstructive pulmonary disease; I12.9 Hypertensive chronic kidney disease with stage 1 through stage 4 chronic kidney disease, or unspecified chronic kidney disease; K21.9 Gastro-esophageal reflux disease without esophagitis; E03.9 Hypothyroidism, unspecified; N39.3 Stress incontinence (female) (male); R00.0 Tachycardia, unspecified; I35.0 Nonrheumatic aortic (valve) stenosis; G45.9 Transient cerebral ischemic attack, unspecified; G24.3 Spasmodic torticollis; N18.31 Chronic kidney disease, stage 3a; R13.10 Dysphagia, unspecified; E78.1 Pure hyperglyceridemia

== ENCOUNTER → 2025-05-08 | Outpatient (REF) | payer MEDICARE ==
[2025-05-08 13:54] LABS: BASO # 0.1 10^3/uL (0.0-0.2); BASO % 0.7 % (0.0-1.0); EOS # 0.2 10^3/uL (0.0-0.5); EOS % 3.4 % (0.0-3.0); LYMPH # 1.3 10^3/uL (1.5-5.0); LYMPH % 19.3 % (24.0-44.0); MONO # 0.7 10^3/uL (0.0-0.8); MONO % 9.8 % (2.0-8.0); NEUTROPHILS # 4.5 10^3/uL (1.5-8.5); NEUTROPHILS % 65.5 % (36.0-66.0); PLATELET COUNT, AUTOMATED 271 10^3/uL (150-450)
== END ==
LOC: M LABDRAWC 12:06
PROVIDERS: ATTEND Internal Medicine Pulmonary Disease
DX: J45.50 Severe persistent asthma, uncomplicated (principal)